=== PATIENT | male | born 1960 | race Caucasian/White ===

== ENCOUNTER 2020-07-19 12:08 | Emergency (ER) | payer OTHER ==
[2020-07-19 13:24] LABS: BASOPHIL 0.4 % (0-2); EOSINOPHIL 0.5 % (0-5); HCT 39.1 % (42.0-52.0); HGB 12.9 g/dl (13.2-18.0); LYMPHOCYTE 8.1 % (15-48); MCH 30.1 pg (25.0-31.0); MCV 91.1 fL (78.0-100.0); MONOCYTE 8.7 % (0-12); MPV 10.3 fL (6.0-9.5); NEUTROPHIL 82.1 % (41-80); NRBC 0; PLT 253 K/uL (150-400); RBC 4.29 M/uL (4.70-6.00); RDW 12.8 % (11.5-14.0); WBC 8.5 K/uL (4.0-10.5)
[2020-07-19 13:39] LABS: ALBUMIN 3.3 g/dL (3.4-5.0); BILIRUBIN - TOTAL 1.1 mg/dL (0.2-1.0); BUN/CREAT RATIO (CALC) 15.8 RATIO; CREATININE 0.95 mg/dL (0.67-1.17); GLOBULIN (CALCULATION) 3.3 g/dL; POTASSIUM 3.3 mmol/L (3.5-5.1); TOTAL PROTEIN 6.6 g/dL (6.4-8.2)
[2020-07-19 15:09] LABS: WBC (FLUID) 22974 WBC/uL
[2020-07-19 15:10] LABS: RBC (FLUID) 0 RBC/uL
[2020-07-19 15:12] LABS: CLARITY (FLUID) HAZY; COLOR (FLUID) YELLOW
[2020-07-19] MEDS ORDERED: NAPROXEN500 MG PO (15:37)
[2020-07-19] MEDS ORDERED: NORCO 5-325 TA1 EACH PO (15:37)
[2020-07-19] MEDS ORDERED: MEDROL 4MG DOSEP4 MG PO (15:37)
== END 2020-07-19 15:46 | disposition home or self-care (01) ==
LOC: FER 12:08
PROVIDERS: Emergency Medicine
DX: M10.061 Idiopathic gout, right knee (principal)
CPT/HCPCS: 36415; 73560; 80053; 85025; 87070; 87205; 89051; 89060

== ENCOUNTER 2021-01-20 15:39 | Emergency (ER) | payer OTHER ==
[~2021-01-20 15:39] MED LIST: MEDROL 4MG DOSEP4 MG PO; NAPROXEN500 MG PO; NORCO 5-325 TA1 EACH PO
[2021-01-20 16:26] LABS: BASOPHIL 0.3 % (0-2); EOSINOPHIL 0.1 % (0-5); HCT 40.8 % (42.0-52.0); HGB 13.7 g/dl (13.2-18.0); LYMPHOCYTE 10.4 % (15-48); MCH 30.9 pg (25.0-31.0); MCHC 33.6 g/dL (32.0-36.0); MCV 91.9 fL (78.0-100.0); MONOCYTE 10.1 % (0-12); MPV 10.1 fL (6.0-9.5); NEUTROPHIL 78.9 % (41-80); NRBC 0; PLT 240 K/uL (150-400); RBC 4.44 M/uL (4.70-6.00); RDW 14.2 % (11.5-14.0); WBC 9.8 K/uL (4.0-10.5)
[2021-01-20 16:56] LABS: CREATININE 0.88 mg/dL (0.67-1.17); POTASSIUM 3.9 mmol/L (3.5-5.1); URIC ACID 7.1 mg/dL (3.5-7.2)
[2021-01-20] MEDS ORDERED: NORCO 5-325 TA1 EACH PO (17:53)
[2021-01-20] MEDS ORDERED: INDOCIN 25MG CA25 MG PO (17:53)
[2021-01-20] MEDS ORDERED: PREDNISONE 20MG20 MG PO (17:53)
== END 2021-01-20 18:10 | disposition home or self-care (01) ==
LOC: FER 15:39
PROVIDERS: Nurse Practitioner Family
DX: M10.062 Idiopathic gout, left knee (principal); I10 Essential (primary) hypertension
CPT/HCPCS: 36415; 73564; 80048; 84550; 85025